=== PATIENT | female | born 1960 | race American Indian/Alaskan Native ===

== ENCOUNTER 2016-08-14 00:53 | Emergency (ER) | payer OTHER ==
[2016-08-14] MEDS ORDERED: CATAPRES PO ONE (01:40)
[2016-08-14 02:07] LABS: Eosinophils % (Auto) 1.5 % (0.0-4.3); Hematocrit 38.3 % (30.3-42.9); Hemoglobin 12.8 gm/dl (10.1-14.3); Mean Corpuscular HGB Conc 34 % (30-34); Mean Corpuscular Hemoglobin 26 pg (28-32); Mean Corpuscular Volume 78 fl (79-97); Platelet Count 308 K/mm3 (140-440); Red Cell Distribution Width 13.5 % (13.2-15.2); White Blood Count 10.4 K/mm3 (4.5-11.0)
[2016-08-14 02:23] LABS: Anion Gap 17 mmol/L; Blood Urea Nitrogen 14 mg/dL (7-17); Carbon Dioxide 24 mmol/L (22-30); Chloride 104.2 mmol/L (98-107); Glucose 96 mg/dL (65-100); Potassium 3.3 mmol/L (3.6-5.0); Sodium 142 mmol/L (137-145)
[2016-08-14] MEDS ORDERED: K-DUR PO ONE (06:30)
[2016-08-14] MEDS ORDERED: MOTRIN PO ONE (06:30)
[2016-08-14] MEDS ORDERED: TYLENOL PO ONE (06:30)
--- NOTE | 2016-08-14 06:35 | Emergency Department Report ---
ED General Adult HPI - General Chief complaint: Chest Pain Stated complaint: LT BREAST SORE Time Seen by Provider: 08/14/16 06:22 Source: patient, RN notes reviewed, old records reviewed Mode of arrival: Ambulatory Limitations: No Limitations - History of Present Illness Initial comments: Since a 56-year-old female. She is previously unknown to me. She currently does not have a primary care doctor, reports a history of hypertension. She reports that she has not taken her blood pressure medication in a month. She presents to the ER with left breast mass and pain. It developed in the past 48 hours. Pain is sharp. She reports that the pain initially moved to her back and neck, but this has since resolved. There is no chest pain. There is no shortness of breath. There is no nausea, vomiting or diaphoresis. There is no leg pain. There is no leg swelling. No recent trips greater than 4 hours. No recent hospital admissions. On her physical exam, there was noted to be a palpable left breast mass in the left lateral inferior quadrant, left medial inferior quadrant. It is somewhat tender. There is no redness, pus, streaking or discharge. During the breast examination, I was escorted by nurse Mag Lopez. The patient has a pulmonary embolus or DVT risk factors, she is low risk by well 's criteria. In addition, the patient had no chest pain, but rather breast pain. Troponins were sent prior to my evaluation, but given her obvious breast tenderness, and palpable breast mass, I don't believe the patient is having an atypical presentation of acute coronary syndrome. Furthermore, given her physical exam and history, I find the patient to be low risk by REX score, and low risk by heart store. She was given pain medication, and her hypokalemia was repleted. The patient was discharged with a refill on her blood pressure medication, amlodipine, and she will be discharged with instructions to follow-up with a primary care doctor, excel analyst, or breast specialist. The patient was specifically instructed that she would need to remain compliant with her antihypertensive medications, and she was further counseled that noncompliance with antihypertensive medication may result in , disability, stroke and disability. In addition, she is counseled that not following up for her breast mass may result in undiagnosed tumor/cancer/malignancy. Patient reports that she hasn't really followed up for her outpatient preventative care, including mammograms. -: Gradual Location: left Severity scale (0 -10): 7 Quality: aching Consistency: intermittent Improves with: rest Worsens with: movement Associated Symptoms: denies other symptoms - Related Data Previous Rx's Medication Instructions Recorded Last Taken Type Hydrochlorothiazide [HCTZ] 25 mg PO QDAY #60 tablet 10/20/14 Unknown Rx Ibuprofen [Motrin] 600 mg PO Q8H PRN #30 tablet 08/14/16 Unknown Rx amLODIPine [Norvasc] 5 mg PO DAILY #60 tab 08/14/16 Unknown Rx Allergies Allergy/AdvReac Type Severity Reaction Status Date / Time No Known Allergies Allergy Verified 05/15/14 11:27 ED Review of Systems ROS: Stated complaint: LT BREAST SORE Other details as noted in HPI Eyes: denies: vision change Respiratory: denies: shortness of breath Cardiovascular: denies: dyspnea on exertion Gastrointestinal: denies: nausea, vomiting Genitourinary: as per HPI Musculoskeletal: denies: arthralgia, myalgia Skin: denies: rash Neurological: denies: headache, weakness ED Past Medical Hx - Past Medical History Previous Medical History?: Yes Hx Hypertension: Yes - Surgical History Past Surgical History?: No - Social History Smoking Status: Never Smoker Substance Use Type: None - Medications Home Medications: Home Medications Medication Instructions Recorded Confirmed Last Taken Type Hydrochlorothiazide [HCTZ] 25 mg PO QDAY #60 tablet 10/20/14 Unknown Rx Ibuprofen [Motrin] 600 mg PO Q8H PRN #30 tablet 08/14/16 Unknown Rx amLODIPine [Norvasc] 5 mg PO DAILY #60 tab 08/14/16 Unknown Rx ED Physical Exam - General Limitations: No Limitations General appearance: alert, in no apparent distress - Head Head exam: Present: atraumatic, normocephalic - Eye Eye exam: Present: normal appearance, EOMI. Absent: nystagmus - ENT ENT exam: Present: normal exam, normal orophraynx, mucous membranes moist, normal external ear exam - Neck Neck exam: Present: normal inspection, full ROM. Absent: tenderness, meningismus - Respiratory Respiratory exam: Present: normal lung sounds bilaterally, chest wall tenderness , other (there is a well-circumscribed palpable and tender breast mass noted on the inferior medial and lateral quadrants on the left breast. There is no redness, pus or streaking. No orange peel is noted. During the breast examination, I escorted by nurse Mag Lopez.). Absent: respiratory distress, wheezes, rales, rhonchi, stridor - Cardiovascular Cardiovascular Exam: Present: regular rate, normal rhythm, normal heart sounds. Absent: bradycardia, tachycardia, irregular rhythm, systolic murmur, diastolic murmur, rubs, gallop - GI/Abdominal GI/Abdominal exam: Present: soft, normal bowel sounds. Absent: distended, tenderness, guarding, rebound, rigid, pulsatile mass - Extremities Exam Extremities exam: Present: normal inspection, full ROM, normal capillary refill , other (there is no palpable cord. There is negative Homans sign.). Absent: pedal edema, joint swelling, calf tenderness - Back Exam Back exam: Present: normal inspection, full ROM. Absent: tenderness, CVA tenderness (R), CVA tenderness (L), muscle spasm, paraspinal tenderness, vertebral tenderness - Neurological Exam Neurological exam: Present: alert, oriented X3, normal gait, other (Extraocular movements intact. Tongue midline. No facial droop. Facial sensation intact to light touch in the V1, V2, V3 distribution bilaterally. 5 and 5 strength in 4 extremities.. Sensation is intact to light touch in 4 extremities.). Absent : motor sensory deficit - Psychiatric Psychiatric exam: Present: normal affect, normal mood - Skin Skin exam: Present: warm, dry, intact, normal color. Absent: rash ED Course Vital Signs 08/14/16 08/14/16 08/14/16 00:57 01:06 01:43 Temperature 98.2 F 98.2 F Pulse Rate 91 H 91 H 91 H Respiratory 20 20 Rate Blood Pressure 193/118 193/118 Blood Pressure 207/128 [Right] O2 Sat by Pulse 99 99 Oximetry 08/14/16 08/14/16 08/14/16 01:55 02:00 02:10 Temperature Pulse Rate 72 68 Respiratory 26 H 16 Rate Blood Pressure 208/119 208/119 199/110 Blood Pressure [Right] O2 Sat by Pulse Oximetry 08/14/16 08/14/16 08/14/16 02:20 02:30 02:40 Temperature Pulse Rate 66 64 62 Respiratory 21 11 L 18 Rate Blood Pressure 182/102 182/102 165/94 Blood Pressure [Right] O2 Sat by Pulse Oximetry 08/14/16 08/14/16 08/14/16 02:50 03:05 03:11 Temperature Pulse Rate 67 62 63 Respiratory 16 18 18 Rate Blood Pressure 168/87 199/110 199/110 Blood Pressure [Right] O2 Sat by Pulse Oximetry 08/14/16 08/14/16 08/14/16 03:21 03:30 03:41 Temperature Pulse Rate 60 62 62 Respiratory 18 18 18 Rate Blood Pressure 143/81 129/74 129/74 Blood Pressure [Right] O2 Sat by Pulse Oximetry 08/14/16 08/14/16 08/14/16 03:51 04:00 04:11 Temperature Pulse Rate 65 63 59 L Respiratory 18 17 19 Rate Blood Pressure 135/73 141/83 141/83 Blood Pressure [Right] O2 Sat by Pulse Oximetry 08/14/16 08/14/16 08/14/16 04:21 04:30 04:41 Temperature Pulse Rate 62 63 60 Respiratory 19 16 19 Rate Blood Pressure 140/80 144/84 144/84 Blood Pressure [Right] O2 Sat by Pulse Oximetry 08/14/16 08/14/16 08/14/16 04:51 05:00 05:11 Temperature Pulse Rate 59 L 59 L 60 Respiratory 18 18 19 Rate Blood Pressure 138/81 141/77 141/77 Blood Pressure [Right] O2 Sat by Pulse Oximetry 08/14/16 08/14/16 08/14/16 05:21 05:30 05:41 Temperature Pulse Rate 62 62 61 Respiratory 19 19 19 Rate Blood Pressure 137/75 144/84 144/84 Blood Pressure [Right] O2 Sat by Pulse Oximetry 08/14/16 08/14/16 08/14/16 05:51 06:00 06:11 Temperature Pulse Rate 61 63 82 Respiratory 18 19 18 Rate Blood Pressure 150/97 156/83 156/83 Blood Pressure [Right] O2 Sat by Pulse Oximetry 08/14/16 07:28 Temperature 98.1 F Pulse Rate 68 Respiratory 18 Rate Blood Pressure Blood Pressure 155/89 [Right] O2 Sat by Pulse 97 Oximetry ED Medical Decision Making - Lab Data Result diagrams: 08/14/16 01:46 08/14/16 01:46 Vital Signs 08/14/16 08/14/16 08/14/16 00:57 01:06 01:43 Temperature 98.2 F 98.2 F Pulse Rate 91 H 91 H 91 H Respiratory 20 20 Rate Blood Pressure 193/118 193/118 Blood Pressure 207/128 [Right] O2 Sat by Pulse 99 99 Oximetry 08/14/16 08/14/16 08/14/16 01:55 02:00 02:10 Temperature Pulse Rate 72 68 Respiratory 26 H 16 Rate Blood Pressure 208/119 208/119 199/110 Blood Pressure [Right] O2 Sat by Pulse Oximetry 08/14/16 08/14/16 08/14/16 02:20 02:30 02:40 Temperature Pulse Rate 66 64 62 Respiratory 21 11 L 18 Rate Blood Pressure 182/102 182/102 165/94 Blood Pressure [Right] O2 Sat by Pulse Oximetry 08/14/16 08/14/16 08/14/16 02:50 03:05 03:11 Temperature Pulse Rate 67 62 63 Respiratory 16 18 18 Rate Blood Pressure 168/87 199/110 199/110 Blood Pressure [Right] O2 Sat by Pulse Oximetry 08/14/16 08/14/16 08/14/16 03:21 03:30 03:41 Temperature Pulse Rate 60 62 62 Respiratory 18 18 18 Rate Blood Pressure 143/81 129/74 129/74 Blood Pressure [Right] O2 Sat by Pulse Oximetry 08/14/16 08/14/16 08/14/16 03:51 04:00 04:11 Temperature Pulse Rate 65 63 59 L Respiratory 18 17 19 Rate Blood Pressure 135/73 141/83 141/83 Blood Pressure [Right] O2 Sat by Pulse Oximetry 08/14/16 08/14/16 08/14/16 04:21 04:30 04:41 Temperature Pulse Rate 62 63 60 Respiratory 19 16 19 Rate Blood Pressure 140/80 144/84 144/84 Blood Pressure [Right] O2 Sat by Pulse Oximetry 08/14/16 08/14/16 08/14/16 04:51 05:00 05:11 Temperature Pulse Rate 59 L 59 L 60 Respiratory 18 18 19 Rate Blood Pressure 138/81 141/77 141/77 Blood Pressure [Right] O2 Sat by Pulse Oximetry 08/14/16 08/14/16 08/14/16 05:21 05:30 05:41 Temperature Pulse Rate 62 62 61 Respiratory 19 19 19 Rate Blood Pressure 137/75 144/84 144/84 Blood Pressure [Right] O2 Sat by Pulse Oximetry 08/14/16 08/14/1617 05:51 06:00 06:11 Temperature Pulse Rate 61 63 82 Respiratory 18 19 18 Rate Blood Pressure 150/97 156/83 156/83 Blood Pressure [Right] O2 Sat by Pulse Oximetry 08/14/16 07:28 Temperature 98.1 F Pulse Rate 68 Respiratory 18 Rate Blood Pressure Blood Pressure 155/89 [Right] O2 Sat by Pulse 97 Oximetry Lab Results 08/14/16 08/14/16 08/14/16 Range/Units 01:46 01:46 03:52 WBC 10.4 (4.5-11.0) K/mm3 RBC 4.90 (3.65-5.03) M/mm3 Hgb 12.8 (10.1-14.3) gm/dl Hct 38.3 (30.3-42.9) % MCV 78 L (79-97) fl MCH 26 L (28-32) pg MCHC 34 (30-34) % RDW 13.5 (13.2-15.2) % Plt Count 308 (140-440) K/mm3 Lymph % (Auto) 37.0 H (13.4-35.0) % [place] % (Auto) 8.1 H (0.0-7.3) % Eos % (Auto) 1.5 (0.0-4.3) % Baso % (Auto) 1.0 (0.0-1.8) % Lymph # 3.8 (1.2-5.4) K/mm3 [place] # 0.8 (0.0-0.8) K/mm3 Eos # 0.2 (0.0-0.4) K/mm3 Baso # 0.1 (0.0-0.1) K/mm3 Seg Neutrophils % 52.4 (40.0-70.0) % Seg Neutrophils # 5.4 (1.8-7.7) K/mm3 Sodium 142 (137-145) mmol/L Potassium 3.3 L (3.6-5.0) mmol/L Chloride 104.2 (98-107) mmol/L Carbon Dioxide 24 (22-30) mmol/L Anion Gap 17 mmol/L BUN 14 (7-17) mg/dL Creatinine 0.8 (0.7-1.2) mg/dL Estimated GFR > 60 ml/min BUN/Creatinine Ratio 17.50 % Glucose 96 (65-100) mg/dL Calcium 9.0 (8.4-10.2) mg/dL Troponin T < 0.010 < 0.010 (0.00-0.029) ng/mL - EKG Data -: EKG Interpreted by Me EKG shows normal: sinus rhythm Rate: normal - EKG Data Interpretation: unchanged when compared t 08/14/16 08:41 normal sinus, 76 bpm, normal axis, QTC 452 ms, nonspecific T- wave abnormality, not morphologically consistent with STEMI, appears unchanged compared to prior from 10/12/2014. - Medical Decision Making Differential diagnosis: Poorly controlled hypertension, medication noncompliance , breast mass/tumor/emergency (benign versus malignant's.) Patient is to follow-up for her hypertension and breast mass. Critical care attestation.: If time is entered above; I have spent that time in minutes in the direct care of this critically ill patient, excluding procedure time. ED Disposition Clinical Impression: Mastodynia of left breast, Elevated blood pressure reading Disposition: - TO HOME OR SELFCARE Is pt being admited?: No Does the pt Need Aspirin: No Condition: Stable Instructions: Hypertension (ED), Breast Mass (ED) Additional Instructions: Take pain medication as directed. Follow up with a primary care doctor, excel analyst, or listed breast surgeon within the next 2 weeks. Please note that blood pressure was very elevated in the emergency department. It is important to take her blood pressure medication. Long-term complications of hypertension/elevated blood pressure include stroke, heart attack, disability, , paralysis, loss of quality of life. Return to the ER right away with new pain, worsening pain, migration of pain, fevers, chills, chest pain, shortness of breath, intractable nausea or vomiting, confusion. In addition, the left breast mass needs to be followed up in a timely fashion, for mammography and further outpatient evaluation. Not following up the resultant undiagnosed tumor/cancer/malignancy Prescriptions: amLODIPine [Norvasc] 5 mg PO DAILY #60 tab Ibuprofen [Motrin] 600 mg PO Q8H PRN #30 tablet PRN Reason: Pain Referrals: PRIMARY CAREMD [Primary Care Provider] - 3-5 Days JO TERRY MD [Staff Physician] - 3-5 Days [facility] [Provider Group] - 3-5 Days [facility] [Provider Group] - 3-5 Days [facility] [Provider Group] - 3-5 Days PABLITO MCKEON MD [Staff Physician] - 3-5 Days Forms: Accompanied Note, Work/School Release Form(ED)
[2016-08-14 07:30] VITALS: BP 155/89
== END 2016-08-14 07:28 | disposition home or self-care (01) ==
LOC: ED 00:53
DX: I10 Essential (primary) hypertension (principal)
CPT/HCPCS: 36415; 80048; 84484; 85025; 93005; 93010; 99284

== ENCOUNTER 2017-04-02 00:46 | Emergency (ER) | payer SELFPAY ==
[2017-04-02] MEDS ORDERED: CATAPRES ONE (02:33)
[2017-04-02] MEDS ORDERED: CATAPRES PO ONE (02:34)
[2017-04-02] MEDS ORDERED: APRESOLINE IV ONE ×2 (07:05→08:40)
--- NOTE | 2017-04-02 07:13 | Emergency Department Report ---
HPI - General Chief Complaint: High BP Time Seen by Provider: 04/02/17 06:47 - HPI HPI: 56-year-old -Greek female was already at the emergency department as she brought her son in for flulike symptoms. While here, she asked for someone to check her blood pressure as "I knew it must have been elevated and "and was in fact very high. The patient has been out of her medication for the past 4 months. She is unsure what she was on but thinks it might of been Norvasc but says that did not work for her. She is a former smoker. She drinks about 3 caffeinated drinks per week. She denies excessive salt use. She denies any headache, chest pain, shortness breath, fever, nausea, vomiting. She has a history of hypertension "since I was 17." She is not currently have a PCP. Her insurance kicks in at the end of the month. ED Past Medical Hx - Past Medical History Previous Medical History?: Yes Hx Hypertension: Yes - Surgical History Past Surgical History?: No - Social History Smoking Status: Former Smoker Substance Use Type: None - Medications Home Medications: Home Medications Medication Instructions Recorded Confirmed Last Taken Type Hydrochlorothiazide [HCTZ] 25 mg PO QDAY #60 tablet 10/20/14 Unknown Rx Ibuprofen [Motrin] 600 mg PO Q8H PRN #30 tablet 08/14/16 Unknown Rx amLODIPine [Norvasc] 5 mg PO DAILY #60 tab 08/14/16 Unknown Rx cloNIDine [Catapres] 0.1 mg PO BID #60 tablet 04/02/17 Unknown Rx ED Review of Systems ROS: Stated complaint: HTN Other details as noted in HPI Comment: All other systems reviewed and negative Constitutional: denies: chills, fever Eyes: denies: eye pain, eye discharge, vision change ENT: ear pain Respiratory: denies: cough, shortness of breath, wheezing Cardiovascular: denies: chest pain, palpitations Gastrointestinal: denies: abdominal pain, nausea, diarrhea Genitourinary: denies: urgency, dysuria, discharge Musculoskeletal: denies: back pain, joint swelling, arthralgia Skin: denies: rash, lesions Neurological: denies: headache, weakness, paresthesias Physical Exam - Physical Exam Vital Signs: Vital Signs 02/08/18 02/08/18 02/08/18 02:27 02:35 06:37 Temperature 98.6 F 97.8 F Pulse Rate 72 72 58 L Respiratory 17 17 Rate Blood Pressure 220/120 220/120 Blood Pressure 161/88 [Left] O2 Sat by Pulse 100 98 Oximetry Physical Exam: GENERAL: The patient is well-developed well-nourished. HENT: Normocephalic. Atraumatic. Patient has moist mucous membranes. EYES: Extraocular motions are intact. Pupils equal reactive to light bilaterally. NECK: Supple. Trachea is midline. CHEST/LUNGS: Clear to auscultation. There is no respiratory distress noted. HEART/CARDIOVASCULAR: Regular. There is no tachycardia. There is no murmur. ABDOMEN: Abdomen is soft, nontender. Patient has normal bowel sounds. There is no abdominal distention. SKIN: Skin is warm and dry. NEURO: The patient is awake, alert, and oriented. The patient is cooperative. The patient has no focal neurologic deficits. The patient has normal speech. MUSCULOSKELETAL: There is no tenderness or deformity. There is no limitation range of motion. There is no evidence of acute injury. ED Course Vital Signs 04/02/17 04/02/17 04/02/17 02:27 02:35 06:37 Temperature 98.6 F 97.8 F Pulse Rate 72 72 58 L Respiratory 17 17 Rate Blood Pressure 220/120 220/120 Blood Pressure 161/88 [Left] O2 Sat by Pulse 100 98 Oximetry ED Medical Decision Making - Lab Data Result diagrams: 04/02/17 07:25 04/02/17 07:25 - Medical Decision Making Patient presents with asymptomatic uncontrolled hypertension. She had received some Catapres early on but her blood pressure was still elevated. She was given 2 separate doses of IV hydralazine 10 mg and eventually her blood pressure came down to a more reasonable level. We discussed dietary and/or lifestyle changes that possibly could be made and the patient will be started on Catapres twice daily. She has been given referrals for primary care physicians, both private and clinics. She has been encouraged to return to the emergency Department with any worsening of her symptoms or any acute distress. Critical Care Time: No Critical care attestation.: If time is entered above; I have spent that time in minutes in the direct care of this critically ill patient, excluding procedure time. ED Disposition Clinical Impression: Uncontrolled hypertension Disposition: DC-01 TO HOME OR SELFCARE Is pt being admited?: No Condition: Stable Instructions: Hypertension (ED) Additional Instructions: Please follow-up with a primary care physician in the next few days. Try and stay away from foods that are high in salt and caffeinated products to help with her blood pressure. Keep a blood pressure log. I'm starting you on a blood pressure medication called catapres / clonodine to be taken twice daily. Return to the emergency Department with any worsening of your symptoms or any acute distress. Prescriptions: cloNIDine [Catapres] 0.1 mg PO BID #60 tablet Referrals: [facility] [Outside] - 3-5 Days RODOLFO BRUNNER MD [Staff Physician] - 3-5 Days PRIMARY CAR[facility]D [Primary Care Provider] - 3-5 Days JO TERRY MD [Staff Physician] - 3-5 Days
[2017-04-02 07:48] LABS: Basophils # (Auto) 0.1 K/mm3 (0.0-0.1); Eosinophils # (Auto) 0.1 K/mm3 (0.0-0.4); Eosinophils % (Auto) 1.7 % (0.0-4.3); Hemoglobin 12.5 gm/dl (10.1-14.3); Lymphocytes # (Auto) 2.7 K/mm3 (1.2-5.4); Mean Corpuscular HGB Conc 32 % (30-34); Mean Corpuscular Hemoglobin 26 pg (28-32); Mean Corpuscular Volume 82 fl (79-97); Monocytes # (Auto) 0.8 K/mm3 (0.0-0.8); Monocytes % (Auto) 9.5 % (0.0-7.3); Red Blood Count 4.78 M/mm3 (3.65-5.03); Red Cell Distribution Width 13.5 % (13.2-15.2)
[2017-04-02 07:51] LABS: Platelet Count 249 K/mm3 (140-440)
[2017-04-02 08:05] LABS: BUN/Creatinine Ratio 17; Blood Urea Nitrogen 12 mg/dL (7-17); Calcium 9.1 mg/dL (8.4-10.2); Hemolysis Index 93
[2017-04-02 11:24] VITALS: BP 157/76
== END 2017-04-02 11:24 | disposition home or self-care (01) ==
LOC: ED 00:46
DX: I10 Essential (primary) hypertension (principal)
CPT/HCPCS: 36415; 80048; 85025; 96374; 96376; 99283; J0360

== ENCOUNTER 2017-06-04 00:04 | Emergency (ER) | payer SELFPAY ==
[2017-06-04] MEDS ORDERED: CATAPRES PO ONE (00:21)
[2017-06-04 00:43] LABS: Basophils # (Auto) 0.1 K/mm3 (0.0-0.1); Basophils % (Auto) 1.1 % (0.0-1.8); Eosinophils # (Auto) 0.2 K/mm3 (0.0-0.4); Eosinophils % (Auto) 2.3 % (0.0-4.3); Hematocrit 38.1 % (30.3-42.9); Hemoglobin 12.4 gm/dl (10.1-14.3); Lymphocytes # (Auto) 3.9 K/mm3 (1.2-5.4); Lymphocytes % (Auto) 46.3 % (13.4-35.0); Mean Corpuscular HGB Conc 33 % (30-34); Mean Corpuscular Hemoglobin 26 pg (28-32); Mean Corpuscular Volume 80 fl (79-97); Monocytes # (Auto) 0.6 K/mm3 (0.0-0.8); Monocytes % (Auto) 7.7 % (0.0-7.3); Platelet Count 322 K/mm3 (140-440); Red Blood Count 4.75 M/mm3 (3.65-5.03); Red Cell Distribution Width 13.6 % (13.2-15.2)
[2017-06-04 00:51] LABS: Calcium 9.4 mg/dL (8.4-10.2)
--- NOTE | 2017-06-04 04:19 | Emergency Department Report ---
ED General Adult HPI - General Chief complaint: High BP Stated complaint: MED REFILL Time Seen by Provider: 06/04/17 03:48 Source: patient Mode of arrival: Ambulatory Limitations: No Limitations - History of Present Illness Initial comments: Patient is a 57-year-old Montene[place]in female who is presenting with elevated blood pressure. Patient states that she ran out of her blood pressure 2 weeks ago because she has no insurance no doctor for refill. Patient was on clonidine. Patient on arrival has a blood pressure of 247/131. Patient is denying chest pain shortness of breath decreased urination at this time. Patient states she had a blood pressure taken before arrivaL AND WAS AFRAID BECAUSE OF THE number that she saw. Severity scale (0 -10): 0 - Related Data Previous Rx's Medication Instructions Recorded Last Taken Type Ibuprofen [Motrin] 600 mg PO Q8H PRN #30 tablet 08/14/16 Unknown Rx cloNIDine [Catapres] 0.1 mg PO BID #60 tablet 04/02/17 Unknown Rx Hydrochlorothiazide [HCTZ] 25 mg PO QDAY #60 tablet 06/04/17 Unknown Rx amLODIPine [Norvasc] 5 mg PO DAILY #60 tab 06/04/17 Unknown Rx Allergies Allergy/AdvReac Type Severity Reaction Status Date / Time No Known Allergies Allergy Verified 05/15/14 11:27 ED Review of Systems ROS: Stated complaint: MED REFILL Other details as noted in HPI Comment: All other systems reviewed and negative ED Past Medical Hx - Past Medical History Hx Hypertension: Yes - Social History Smoking Status: Never Smoker Substance Use Type: None - Medications Home Medications: Home Medications Medication Instructions Recorded Confirmed Last Taken Type Ibuprofen [Motrin] 600 mg PO Q8H PRN #30 tablet 08/14/16 Unknown Rx cloNIDine [Catapres] 0.1 mg PO BID #60 tablet 04/02/17 Unknown Rx Hydrochlorothiazide [HCTZ] 25 mg PO QDAY #60 tablet 06/04/17 Unknown Rx amLODIPine [Norvasc] 5 mg PO DAILY #60 tab 06/04/17 Unknown Rx ED Physical Exam - General Limitations: No Limitations General appearance: alert, in no apparent distress - Head Head exam: Present: atraumatic, normocephalic - Eye Eye exam: Present: normal appearance - ENT ENT exam: Present: mucous membranes moist - Neck Neck exam: Present: normal inspection - Respiratory Respiratory exam: Present: normal lung sounds bilaterally. Absent: respiratory distress, wheezes, rales, rhonchi - Cardiovascular Cardiovascular Exam: Present: regular rate, normal rhythm. Absent: systolic murmur, diastolic murmur, rubs, gallop - GI/Abdominal GI/Abdominal exam: Present: soft, normal bowel sounds. Absent: distended, tenderness, guarding, rebound - Extremities Exam Extremities exam: Present: normal inspection - Back Exam Back exam: Present: normal inspection - Neurological Exam Neurological exam: Present: alert, oriented X3 - Psychiatric Psychiatric exam: Present: normal affect, normal mood - Skin Skin exam: Present: warm, dry, intact, normal color. Absent: rash ED Course Vital Signs 06/04/17 06/04/17 00:10 00:30 Temperature 98.6 F Pulse Rate 79 79 Respiratory 16 Rate Blood Pressure 247/131 247/131 O2 Sat by Pulse 100 Oximetry ED Medical Decision Making - Lab Data Result diagrams: 06/04/17 00:27 06/04/17 00:27 - Medical Decision Making Patient's blood pressure did decrease patient will be discharged home at this time. Critical care attestation.: If time is entered above; I have spent that time in minutes in the direct care of this critically ill patient, excluding procedure time. ED Disposition Clinical Impression: Hypertension Qualifiers: Hypertension type: unspecified Qualified Code(s): I10 - Essential (primary) hypertension Disposition: DC-01 TO HOME OR SELFCARE Is pt being admited?: No Does the pt Need Aspirin: No Condition: Stable Instructions: Hypertension (ED) Prescriptions: amLODIPine [Norvasc] 5 mg PO DAILY #60 tab Hydrochlorothiazide [HCTZ] 25 mg PO QDAY #60 tablet Referrals: [facility] [Outside] - 3-5 Days
[2017-06-04 04:46] VITALS: BP 168/80
== END 2017-06-04 04:44 | disposition home or self-care (01) ==
LOC: ED 00:04
DX: I10 Essential (primary) hypertension (principal)
CPT/HCPCS: 36415; 80048; 85025; 93005; 93010

== ENCOUNTER 2017-09-03 01:26 | Emergency (ER) | payer SELFPAY ==
--- NOTE | 2017-09-03 04:50 | Emergency Department Report ---
ED Recheck HPI - General Chief Complaint: Recheck/Abnormal Lab/Rx Stated Complaint: MED REFILL Time Seen by Provider: 09/03/17 04:40 Source: patient Mode of arrival: Ambulatory Limitations: No Limitations - History of Present Illness Initial Comments: 57-year-old -J[place] female with a past medical history of hypertension comes to the emergency room stating she needs medication refills. Patient was last seen on 06/04/2017 for the same complaint and was given 60 days worth of medication. Patient denies any signs or symptoms. MD Complaint: medication refill request - Related Data Previous Rx's Medication Instructions Recorded Last Taken Type Ibuprofen [Motrin] 600 mg PO Q8H PRN #30 tablet 08/14/16 Unknown Rx cloNIDine [Catapres] 0.1 mg PO BID #60 tablet 04/02/17 Unknown Rx Hydrochlorothiazide [HCTZ] 25 mg PO QDAY #30 tablet 09/03/17 Unknown Rx amLODIPine [Norvasc] 5 mg PO DAILY #30 tab 09/03/17 Unknown Rx Allergies Allergy/AdvReac Type Severity Reaction Status Date / Time No Known Allergies Allergy Verified 09/03/17 01:38 ED Review of Systems ROS: Stated complaint: MED REFILL Other details as noted in HPI ED Past Medical Hx - Past Medical History Previous Medical History?: Yes Hx Hypertension: Yes - Surgical History Past Surgical History?: No - Social History Smoking Status: Never Smoker Substance Use Type: Alcohol - Medications Home Medications: Home Medications Medication Instructions Recorded Confirmed Last Taken Type Ibuprofen [Motrin] 600 mg PO Q8H PRN #30 tablet 08/14/16 Unknown Rx cloNIDine [Catapres] 0.1 mg PO BID #60 tablet 04/02/17 Unknown Rx Hydrochlorothiazide [HCTZ] 25 mg PO QDAY #30 tablet 09/03/17 Unknown Rx amLODIPine [Norvasc] 5 mg PO DAILY #30 tab 09/03/17 Unknown Rx ED Physical Exam - General Limitations: No Limitations General appearance: alert, in no apparent distress - Head Head exam: Present: atraumatic, normocephalic - ENT ENT exam: Present: mucous membranes moist - Respiratory Respiratory exam: Present: normal lung sounds bilaterally. Absent: respiratory distress - Cardiovascular Cardiovascular Exam: Present: regular rate, normal rhythm. Absent: systolic murmur, diastolic murmur, rubs, gallop - Extremities Exam Extremities exam: Absent: pedal edema ED Course Vital Signs 09/03/17 09/03/17 09/03/17 01:28 01:39 05:10 Temperature 98.1 F 98.2 F Pulse Rate 71 72 68 Respiratory 18 18 17 Rate Blood Pressure 226/108 226/108 Blood Pressure 223/122 [Right] O2 Sat by Pulse 99 99 99 Oximetry 09/03/17 06:10 Temperature Pulse Rate 74 Respiratory 16 Rate Blood Pressure Blood Pressure 191/99 [Right] O2 Sat by Pulse 100 Oximetry Critical care attestation.: If time is entered above; I have spent that time in minutes in the direct care of this critically ill patient, excluding procedure time. ED Disposition Clinical Impression: Medication refill Disposition: DC-01 TO HOME OR SELFCARE Is pt being admited?: No Does the pt Need Aspirin: No Condition: Stable Instructions: Chronic Hypertension (ED) Additional Instructions: Please take blood pressure medicine as prescribed. It is important for you to follow up with the primary care provider not the emergency room as this is not the best place to manage chronic diseases. I have listed several clinics for your convenience. Prescriptions: amLODIPine [Norvasc] 5 mg PO DAILY #30 tab Hydrochlorothiazide [HCTZ] 25 mg PO QDAY #30 tablet Referrals: PRIMARY CARE [Primary Care Provider] - 3-5 Days [facility] [Outside] - 3-5 Days [facility] [Outside] - 3-5 Days [facility] [Outside] - [facility] - [facility] - 3-5 Days [facility] [Provider Group] - 3-5 Days
[2017-09-03] MEDS ORDERED: NORVASC PO ONE (04:51)
[2017-09-03] MEDS ORDERED: HCTZ PO ONE (04:51)
[2017-09-03 06:41] VITALS: BP 191/99
== END 2017-09-03 06:05 | disposition home or self-care (01) ==
LOC: ED 01:26
DX: Z76.0 Encounter for issue of repeat prescription (principal); I10 Essential (primary) hypertension
CPT/HCPCS: 99282

== ENCOUNTER 2017-10-03 19:03 | Emergency (ER) | payer SELFPAY ==
[2017-10-03] MEDS ORDERED: MOTRIN ONE (20:10)
[2017-10-03] MEDS ORDERED: MOTRIN PO ONE (20:16)
--- NOTE | 2017-10-03 20:47 | XRay Report ---
FINAL REPORT EXAM: XR SPINE CERVICAL 2-3V HISTORY: Left neck and shoulder pain TECHNIQUE: 3 views of the cervical spine PRIORS: None. FINDINGS: The vertebral bodies are normal in height. There is straightening of cervical lordosis. There is mild loss of disc height and endplate osteophyte formation at C4-5 and C5-6. There is no evidence of fracture or subluxation. The soft tissues are unremarkable. IMPRESSION: Degenerative disc disease at C4-5 and C5-6. Straightening of cervical lordosis may be related to degenerative disc disease are muscle spasm.
[2017-10-04] MEDS ORDERED: FLEXERIL PO ONE (01:03)
[2017-10-04] MEDS ORDERED: TORADOL IM ONE (01:03)
--- NOTE | 2017-10-04 01:18 | Emergency Department Report ---
ED Neck Pain/Injury HPI - General Chief Complaint: Neck Pain/Injury Stated Complaint: NECK/SHOULDER/PAIN Time Seen by Provider: 10/04/17 01:02 Mode of arrival: Ambulatory Limitations: No Limitations - History of Present Illness Initial Comments: Patient is a 57-year-old -Gabonese female who presents with neck pain and acute on chronic patient with a history of DJD cervical patient denies fall injury or trauma states she's been sleeping on the floor hard surfaces for the last 3 days ago, on pain is 6/10 spasm Chris Vee even NSAIDs pain returns when incident wears off replace there is no numbness no tingling no dizziness no lightheadedness no chest pain shortness of breath no nausea vomiting no swelling or shortness of breath no stridor no fever no chills MD Complaint: neck pain Onset/Timin -: month(s) Place: home Radiation: left lateral, left upper extremity Severity: moderate Severity scale (0 -10): 6 Quality: other (cramping spasm ) Consistency: constant Improves With: heat therapy, rest supine, other (NSAIDS ) Worsens With: movement of extremity, movement of neck Context: other (chronic Neck pain DX with DJD Cervical ) Associated Symptoms: tingling. denies: headache, fever, numbness, weakness, vertigo, difficulty walking, swollen glands, difficulty swallowing, nausea, vomiting Treatments Prior to Arrival: none (decision ago for thisDegenerative disease and 57 years old) - Related Data Previous Rx's Medication Instructions Recorded Last Taken Type Ibuprofen [Motrin] 600 mg PO Q8H PRN #30 tablet 08/14/16 Unknown Rx cloNIDine [Catapres] 0.1 mg PO BID #60 tablet 04/02/17 Unknown Rx Hydrochlorothiazide [HCTZ] 25 mg PO QDAY #30 tablet 09/03/17 Unknown Rx amLODIPine [Norvasc] 5 mg PO DAILY #30 tab 09/03/17 Unknown Rx Cyclobenzaprine [Flexeril] 10 mg PO TID PRN #30 tablet 10/04/17 Unknown Rx Menthol/Camphor [[place] 1 applic TP TID PRN #1 tube 10/04/17 Unknown Rx Ointment] Naproxen 500 mg PO BID PRN #30 tablet 10/04/17 Unknown Rx Allergies Allergy/AdvReac Type Severity Reaction Status Date / Time No Known Allergies Allergy Verified 09/03/17 01:38 ED Review of Systems ROS: Stated complaint: NECK/SHOULDER/PAIN Other details as noted in HPI Constitutional: denies: chills, fever Eyes: denies: eye pain, eye discharge, vision change ENT: denies: ear pain, throat pain Respiratory: denies: cough, shortness of breath, wheezing Cardiovascular: denies: chest pain, palpitations Endocrine: no symptoms reported Gastrointestinal: denies: abdominal pain, nausea, diarrhea Genitourinary: denies: urgency, dysuria, discharge Musculoskeletal: arthralgia, myalgia Skin: denies: rash, lesions Neurological: denies: headache, weakness, paresthesias Psychiatric: anxiety Hematological/Lymphatic: denies: easy bleeding, easy bruising ED Past Medical Hx - Past Medical History Previous Medical History?: Yes Hx Hypertension: Yes - Surgical History Past Surgical History?: No - Social History Smoking Status: Former Smoker - Medications Home Medications: Home Medications Medication Instructions Recorded Confirmed Last Taken Type Ibuprofen [Motrin] 600 mg PO Q8H PRN #30 tablet 08/14/16 Unknown Rx cloNIDine [Catapres] 0.1 mg PO BID #60 tablet 04/02/17 Unknown Rx Hydrochlorothiazide [HCTZ] 25 mg PO QDAY #30 tablet 09/03/17 Unknown Rx amLODIPine [Norvasc] 5 mg PO DAILY #30 tab 09/03/17 Unknown Rx Cyclobenzaprine [Flexeril] 10 mg PO TID PRN #30 tablet 10/04/17 Unknown Rx Menthol/Camphor [[place] 1 applic TP TID PRN #1 tube 10/04/17 Unknown Rx Ointment] Naproxen 500 mg PO BID PRN #30 tablet 10/04/17 Unknown Rx ED Physical Exam - General Limitations: No Limitations General appearance: alert, in no apparent distress - Head Head exam: Present: atraumatic, normocephalic - Eye Eye exam: Present: normal appearance, PERRL, EOMI Pupils: Present: normal accommodation - ENT ENT exam: Present: normal exam, mucous membranes moist, TM's normal bilaterally , normal external ear exam - Neck Neck exam: Present: tenderness. Absent: meningismus, full ROM, lymphadenopathy , thyromegaly - Expanded Neck Exam Expanded Neck exam: Present: tenderness (left lateral neck pain and spasm no posterior vertebral point tenderness rom decreased left due to pain there is no ecchymosis no swelling on crepitus no posterior vertebral point tenderness ). Absent: midline deformity, anterior neck swelling, thyroid mass, carotid bruit, tracheal deviation - Respiratory Respiratory exam: Present: normal lung sounds bilaterally. Absent: respiratory distress, wheezes, stridor, chest wall tenderness - Cardiovascular Cardiovascular Exam: Present: regular rate, normal rhythm, normal heart sounds. Absent: systolic murmur, diastolic murmur, rubs, gallop - GI/Abdominal GI/Abdominal exam: Present: soft, normal bowel sounds. Absent: distended, tenderness, guarding, rebound, rigid, organomegaly, mass, bruit, pulsatile mass , hernia - Rectal Rectal exam: Present: deferred - Extremities Exam Extremities exam: Present: normal inspection, full ROM, normal capillary refill. Absent: tenderness, pedal edema, joint swelling, calf tenderness - Back Exam Back exam: Present: tenderness, muscle spasm, paraspinal tenderness. Absent: CVA tenderness (R), CVA tenderness (L), vertebral tenderness, rash noted - Expanded Back Exam Expanded Back exam: Absent: saddle anesthesia 1 - left posterior lateral neck and thoracic muscular pain no crepitsu no swelling no ecchymosis - Neurological Exam Neurological exam: Present: alert, oriented X3, CN II-XII intact, normal gait, motor sensory deficit, reflexes normal - Expanded Neurological Exam Expanded Patient oriented to: Present: person, place, time Speech: Present: fluid speech Cranial nerves: EOM's Intact: Normal, Gag Reflex: Normal, Tongue Deviation: Normal, Nystagmus: Normal, Facial Sensation: Normal Upper motor neuron: Kobe Neglect: Normal, Pronator Drift: Normal, Babinski Sign : Normal, Sensory Extinction: Normal Sensory exam: Upper Extremity Light Touch: Normal, Upper Extremity Pin Prick: Normal, Upper Extremity Temperature: Normal, UE 2 Point Discrimination: Normal, Lower Extremity Light Touch: Normal, Lower Extremity Pin Prick: Normal, Lower Extremity Temperature: Normal, LE 2 Point Discrimination: Normal Motor strength exam: RUE: 5, LUE: 5, RLE: 5, LLE: 5 DTR: bicep (R): 2+, bicep (L): 2+, tricep (R): 2+, tricep (L): 2+, knee (R): 2+ , knee (L): 2+, ankle (R): 2+, ankle (L): 2+ Best Eye Response ([place]): (4) open spontaneously Best Motor Response ([place]): (6) obeys commands Best Verbal Response ([place]): (5) oriented [place] Total: 15 - Psychiatric Psychiatric exam: Present: normal affect, normal mood - Skin Skin exam: Present: warm, dry, intact, normal color. Absent: rash ED Course Vital Signs 10/03/17 10/03/17 10/03/17 19:34 19:54 20:17 Temperature 99.0 F 99.0 F Pulse Rate 112 H 105 H Respiratory 18 18 20 Rate Blood Pressure 181/102 188/99 O2 Sat by Pulse 96 98 Oximetry 10/04/17 02:19 Temperature Pulse Rate Respiratory 18 Rate Blood Pressure O2 Sat by Pulse Oximetry ED Medical Decision Making - Radiology Data Radiology results: report reviewed, image reviewed no acture fracture chronic DDD CSpine, - Medical Decision Making Pain and spasm improved but range of motion improved plan NSAIDs and muscle relaxants moist heat therapy neck exercises patient will follow with PCP in 2-3 days patient verbalizes understanding and agreement with discharge plan patient will be discharged home in stable condition at this time Critical care attestation.: If time is entered above; I have spent that time in minutes in the direct care of this critically ill patient, excluding procedure time. ED Disposition Clinical Impression: Neck muscle strain Qualifiers: Encounter type: initial encounter Qualified Code(s): S16.1XXA - Strain of muscle, fascia and tendon at neck level, initial encounter Disposition: TO HOME OR SELFCARE Is pt being admited?: No Does the pt Need Aspirin: No Condition: Good Instructions: Cervical Spine Strain (ED), Neck Exercises (GEN) Prescriptions: Cyclobenzaprine [Flexeril] 10 mg PO TID PRN #30 tablet PRN Reason: Muscle Spasm Menthol/Camphor [[place] Ointment] 1 applic TP TID PRN #1 tube PRN Reason: pain Naproxen 500 mg PO BID PRN #30 tablet PRN Reason: pain Referrals: [facility] [Outside] - 3-5 Days Forms: Work/School Release Form(ED) Time of Disposition: 02:45
[2017-10-04 02:57] VITALS: BP 170/92
== END 2017-10-04 03:15 | disposition home or self-care (01) ==
LOC: ED 19:03
DX: S16.1XXA Strain of muscle, fascia and tendon at neck level, initial encounter (principal); I10 Essential (primary) hypertension; Z87.891 Personal history of nicotine dependence; X58.XXXA Exposure to other specified factors, initial encounter; Y93.84 Activity, sleeping; Y99.8 Other external cause status; Y92.019 Unspecified place in single-family (private) house as the place of occurrence of the external cause
CPT/HCPCS: 72040; 93005; 93010; 96372; 99283; J1885

== ENCOUNTER 2019-12-09 16:00 | Emergency (ER) | payer BC ==
[2019-12-09 16:49] VITALS: BP 159/88
--- NOTE | 2019-12-09 20:45 | Emergency Department Report ---
Chief Complaint: Upper Respiratory Infection Stated Complaint: SINUS/HEADACHE PAIN Time Seen by Provider: 12/09/19 20:10 - HPI History of Present Illness: 59-year-old -Faroese female presents to the emergency room complaining of stabbing pain to the right adventist that started last night took Excedrin migraine last night but nothing today. Patient reports of a little runny nose no nasal congestion no cough shortness of breath chest pain difficulty swallowing difficulty breathing. She denies any facial tenderness no frontal headache no maxillary pain. Patient does have a history of hypertension blood pressure is stable today at 159/88. Patient does have a primary care provider Dr. Matthews. - Exam Vital Signs: Vital Signs 12/09/19 16:47 Temperature 98.2 F Pulse Rate 83 Respiratory 16 Rate Blood Pressure 159/88 O2 Sat by Pulse 98 Oximetry Physical Exam: Gen: alert oriented NAD nontoxic in appearance HEENT: Normocephalic atraumatic, EOMI, no facial or maxillary tenderness or swelling, no postnasal drip appreciated no tonsillar hypertrophia or exudate or erythematous. Turbinates in both nares are non-hypertrophic Cardic: regular rate and rhythm no murmurs appreciated Resp: Clear to auscultation bilateral no wheezing no rales or rhonchi. Ambulatory without difficulties MSE screening note: Focused history and physical exam performed. Due to findings the following was ordered: 59-year-old -Faroese female presents to the emergency room complaining of stabbing pain to the right adventist that started last night took Excedrin migraine last night but nothing today. Patient reports of a little runny nose no nasal congestion no cough shortness of breath chest pain difficulty swallowing difficulty breathing. She denies any facial tenderness no frontal headache no maxillary pain. Patient does have a history of hypertension blood pressure is stable today at 159/88. Patient does have a primary care provider Dr. Matthews. Based on patient's current history and physical examination I do not feel that this is a sinus infection. I do recommend patient can try taking [id number] Claritin or Zyrtec's use either Flonase or Nasacort Tylenol or ibuprofen for pain management. I recommend patient to follow-up with her primary care provider. I do not feel that antibiotics would benefit this patient. ED Disposition for MSE Disposition: MED SCREENING EXAM-LEFT Is pt being admited?: No Does the pt Need Aspirin: No Condition: Stable Additional Instructions: I recommend taking [id number] Zyrtec's or Claritin, Flonase or Nasacort, ibuprofen or Tylenol for pain management. Follow-up with your primary care provider if symptoms persist or gets worse. Referrals: OLIVE MATTHEWS MD [Staff Physician] - 3-5 Days Forms: Work/School Release Form(ED)
== END 2019-12-09 21:36 | disposition left against medical advice (07) ==
LOC: ED 16:00
DX: R51.9 Headache, unspecified (principal); R09.89 Other specified symptoms and signs involving the circulatory and respiratory systems; I10 Essential (primary) hypertension; Z53.21 Procedure and treatment not carried out due to patient leaving prior to being seen by health care provider

== ENCOUNTER 2020-02-25 13:25 | Emergency (ER) | payer SELFPAY ==
[2020-02-25 14:27] VITALS: BP 167/95
[2020-02-25] MEDS ORDERED: FLUORESCEIN 1 MG STRIP OP ONE (14:36)
[2020-02-25] MEDS ORDERED: TETRACAINE 0.5% OPHTH SOLN 4ML OU PRN (14:36)
--- NOTE | 2020-02-25 15:53 | Emergency Department Report ---
ED Eye Problem HPI - General Chief complaint: Eye Problems Stated complaint: IRRITATION OF EYES Time Seen by Provider: 02/25/20 14:36 Source: patient Mode of arrival: Ambulatory Limitations: No Limitations - History of Present Illness Initial comments: Reports heavy drinking to bring in the new year and her Contacts got crossed in eyes after being in too long now has eye pain and redness. + photophobis. no fever or chills. no FB noticed MD chief complaint: eye pain, eye redness Location: both eyes Place: home If Injury: none Eye Symptoms: burning, redness, pain Severity: mild - Related Data Previous Rx's Medication Instructions Recorded Last Taken Type Ibuprofen [Motrin] 600 mg PO Q8H PRN #30 tablet 08/14/16 Unknown Rx cloNIDine [Catapres] 0.1 mg PO BID #60 tablet 04/02/17 Unknown Rx amLODIPine 5 mg PO DAILY #30 tab 09/03/17 Unknown Rx hydroCHLOROthiazide [HCTZ] 25 mg PO QDAY #30 tablet 09/03/17 Unknown Rx Cyclobenzaprine [Flexeril] 10 mg PO TID PRN #30 tablet 10/04/17 Unknown Rx Menthol/Camphor [[place] 1 applic TP TID PRN #1 tube 10/04/17 Unknown Rx Ointment] Naproxen 500 mg PO BID PRN #30 tablet 10/04/17 Unknown Rx Ketorolac Tromethamin 0.4%(Nf) 1 drop OP QID #1 bottle 02/25/20 Unknown Rx [Acular Ls 0.4% Ophth Frances] Tobramycin [Tobrex] 1 drop OP Q4H #1 bottle 02/25/20 Unknown Rx Allergies Allergy/AdvReac Type Severity Reaction Status Date / Time No Known Allergies Allergy Verified 09/03/17 01:38 ED Review of Systems ROS: Stated complaint: IRRITATION OF EYES Other details as noted in HPI Comment: All other systems reviewed and negative ED Past Medical Hx - Past Medical History Previous Medical History?: Yes Hx Hypertension: Yes - Social History Smoking Status: Former Smoker - Medications Home Medications: Home Medications Medication Instructions Recorded Confirmed Last Taken Type Ibuprofen [Motrin] 600 mg PO Q8H PRN #30 tablet 08/14/16 Unknown Rx cloNIDine [Catapres] 0.1 mg PO BID #60 tablet 04/02/17 Unknown Rx amLODIPine 5 mg PO DAILY #30 tab 09/03/17 Unknown Rx hydroCHLOROthiazide [HCTZ] 25 mg PO QDAY #30 tablet 09/03/17 Unknown Rx Cyclobenzaprine [Flexeril] 10 mg PO TID PRN #30 tablet 10/04/17 Unknown Rx Menthol/Camphor [[place] 1 applic TP TID PRN #1 tube 10/04/17 Unknown Rx Ointment] Naproxen 500 mg PO BID PRN #30 tablet 10/04/17 Unknown Rx Ketorolac Tromethamin 0.4%(Nf) 1 drop OP QID #1 bottle 02/25/20 Unknown Rx [Acular Ls 0.4% Ophth Frances] Tobramycin [Tobrex] 1 drop OP Q4H #1 bottle 02/25/20 Unknown Rx ED Physical Exam - General Limitations: No Limitations General appearance: alert, in no apparent distress - Head Head exam: Present: atraumatic, normocephalic - Eye Eye exam: Present: normal appearance, PERRL, EOMI, conjunctival injection. Absent: nystagmus, periorbital swelling, periorbital tenderness Pupils: Present: normal accommodation - ENT ENT exam: Present: normal exam, normal orophraynx, mucous membranes moist - Neck Neck exam: Present: normal inspection - Respiratory Respiratory exam: Present: normal lung sounds bilaterally. Absent: respiratory distress - Cardiovascular Cardiovascular Exam: Present: regular rate, normal rhythm. Absent: systolic murmur, diastolic murmur, rubs, gallop - GI/Abdominal GI/Abdominal exam: Present: soft, normal bowel sounds - Extremities Exam Extremities exam: Present: normal inspection - Back Exam Back exam: Present: normal inspection - Neurological Exam Neurological exam: Present: alert, oriented X3 - Psychiatric Psychiatric exam: Present: normal affect, normal mood - Skin Skin exam: Present: warm, dry, intact, normal color. Absent: rash ED Course Vital Signs 02/25/20 14:26 Temperature 98.0 F Pulse Rate 90 Respiratory 16 Rate Blood Pressure 167/95 [Right] O2 Sat by Pulse 98 Oximetry Critical care attestation.: If time is entered above; I have spent that time in minutes in the direct care of this critically ill patient, excluding procedure time. ED Disposition Clinical Impression: Acute eye pain, Uveitis Disposition: - TO HOME OR SELFCARE Is pt being admited?: No Does the pt Need Aspirin: No Condition: Stable Instructions: Uveitis, [id number] Prescriptions: Ketorolac Tromethamin 0.4%(Nf) [Acular Ls 0.4% Ophth Frances] 1 drop OP QID #1 bottle Tobramycin [Tobrex] 1 drop OP Q4H #1 bottle Referrals: SUDEEP CRUZ MD [Staff Physician] - 3-5 Days Forms: Work/School Release Form(ED)
== END 2020-02-25 16:15 | disposition home or self-care (01) ==
LOC: ED 13:25
DX: H57.12 Ocular pain, left eye (principal); H20.9 Unspecified iridocyclitis; I10 Essential (primary) hypertension; Z79.899 Other long term (current) drug therapy; Z87.891 Personal history of nicotine dependence
CPT/HCPCS: 99281